=== PATIENT | male | born 1970 | race Caucasian/White ===

== ENCOUNTER 2018-12-21 19:13 | Emergency (ER) | payer OTHER ==
[~2018-12-21] VITALS: Ht 182.9 cm; Wt 113.4 kg
[2018-12-21] MEDS ORDERED: COLCHICINE0.6 MG PO (19:25)
[2018-12-21] MEDS ORDERED: ALLOPURINOL 10100 M1 PO ×2 (19:25→19:46)
[2018-12-21] MEDS ORDERED: PROBENECID-COL1 EACH PO (19:46)
[2018-12-21] MEDS ORDERED: NORCO 7.5-3251 EACH PO (19:50)
[2018-12-21] MEDS ORDERED: PREDNISONE50 MG PO (19:50)
[2018-12-21 20:09] VITALS: BP 125/79
== END 2018-12-21 20:11 | disposition home or self-care (01) ==
LOC: M.ERS 19:13
DX: M10.061 Idiopathic gout, right knee (principal)

== ENCOUNTER 2019-09-04 17:06 | Inpatient (IN) | payer OTHER ==
[~2019-09-04] VITALS: Ht 188 cm; Wt 118.4 kg
[~2019-09-04 17:06] MED LIST: ALLOPURINOL 10100 M1 PO; COLCHICINE0.6 MG PO; NORCO 7.5-3251 EACH PO; PREDNISONE50 MG PO; PROBENECID-COL1 EACH PO
[2019-09-04 17:27] VITALS: BP 143/77
[2019-09-04 18:13] LABS: INFLUENZA A ANTIGEN Negative (Negative); INFLUENZA B ANTIGEN Negative (Negative)
[2019-09-04 18:20] LABS: ABSOLUTE BASOPHILS 0.1 thou/uL (0.0-0.2); ABSOLUTE LYMPHOCYTES 2.7 thou/uL (0.8-5.3); ABSOLUTE MONOCYTES 0.9 thou/uL (0.0-1.2); ABSOLUTE NEUTROPHILS 9.1 thou/uL (1.6-8.1); BASOPHILS 0.9 %; EOSINOPHILS 0.3 %; HEMATOCRIT 37.5 % (42.0-52.0); HEMOGLOBIN 13.2 gm/dL (14.0-18.0); LYMPHOCYTES 21.3 %; MCH 32.6 pg (26.0-34.0); MCHC 35.1 g/dL (28.0-37.0); MCV 92.9 fL (80.0-100.0); MONOCYTES 6.7 %; MPV 7.7 fl. (7.2-11.1); NUCLEATED RBCS 0 /100WBC; PLATELET COUNT* 304 thou/uL (150-400); POLYS 70.8 %; RBC 4.04 mil/uL (4.50-6.00); RDW-CV 13.9 % (10.5-14.5); WBC 12.8 thou/uL (4.0-11.0)
[2019-09-04 18:29] LABS: INR 1.2
[2019-09-04 18:30] LABS: CALCIUM 9.3 mg/dL (8.5-10.1); CREATININE 0.6 mg/dL (0.6-1.3)
[2019-09-04 18:31] LABS: POTASSIUM 2.7 mmol/L (3.5-5.1)
[2019-09-04 18:43] LABS: ALBUMIN 3.1 g/dL (3.4-5.0); TOTAL BILIRUBIN 1.2 mg/dL (<0.1-1.0); TOTAL PROTEIN 7.7 g/dL (6.4-8.2)
[2019-09-04 19:34] LABS: ESR (SEDRATE) 56 mm/hr (0-20)
[2019-09-04 20:21] LABS: URINE BLOOD NEGATIVE (Negative); URINE CLARITY CLEAR; URINE COLOR YELLOW; URINE GLUCOSE-RANDOM NEGATIVE (Negative); URINE KETONES 1+ (Negative); URINE LEUKOCYTES-REFLEX NEGATIVE (Negative); URINE NITRITE-REFLEX NEGATIVE (Negative); URINE PROTEIN TRACE (Negative); URINE SPECIFIC GRAVITY 1.025 (1.005-1.030); URINE UROBILINOGEN 0.2 E.U./dl (0.2-1.0)
[2019-09-04 20:25] LABS: ICTOTEST (BILI CONFIRMATORY) Negative (Negative); URINE BILIRUBIN 1+ (Negative)
[2019-09-04 20:29] LABS: AMP/METHAMP Negative (Negative); BARBITURATES Negative (Negative); BENZODIAZEPINES Negative (Negative); COCAINE Negative (Negative); METHADONE Negative (Negative); OPIATES Negative (Negative); PCP Negative (Negative); THC Negative (Negative)
[2019-09-04 22:24] VITALS: BP 134/90
[2019-09-04 22:30] VITALS: BP 136/77
[2019-09-05 07:30] VITALS: BP 129/73
[2019-09-05] MEDS ORDERED: PREDNISONE 20 M20 M1 PO (12:12)
[2019-09-05] MEDS ORDERED: MITIGARE0.6 MG PO (12:16)
[2019-09-05] MEDS ORDERED: ALLOPURINOL 10100 M3 PO (12:18)
[2019-09-05] MEDS ORDERED: IBU-200200 MG PO (12:21)
[2019-09-05 12:22] VITALS: BP 129/73
--- NOTE | 2019-09-05 13:19 | EKG ---
[place] [address] ELECTROCARDIOGRAM REPORT Name: REBECCA POLO Room: [address] IN [facility]#: [id number] Admission: 09/04/19 Attend Phys: Susan Bland Discharge: Date of : 66 Report #: [id number] THIS REPORT FOR: //name// [facility] ED Test Date: 2019-09-04 Test Time: 18:07:52 Pat Name: REBECCA POLO Department: Room: [facility] Gender: M Channel Marketing Program Manager: : 1970 Requested By: Hayes Perez Order Number: [id number] MD: Jerman Godinez Measurements Intervals [place] Rate: 97 P: 4 SC: 148 QRS: -15 QRSD: 99 T: 24 QT: 346 QTc: 440 Interpretive Statements Sinus rhythm Multiple premature complexes, vent & supraven consider Inferior infarct, old No previous ECG available for comparison Electronically Signed On 09-05-2019 13:19:04 [employer] by Jerman Godinez [email or web address] <ELECTRONICALLY SIGNED> By: Jerman Godinez MD, [facility] 09/05/19 1319 06 06 Jerman Godinez MD, FACC /EPI
[2019-09-07 10:11] LABS: ANA INTERPRETATION Negative (Negative)
== END 2019-09-05 16:35 | disposition home or self-care (01) | DRG 546 ==
LOC: M.ERS 17:06 → M.TBA-ER 18:49 → M.ORTHSURG 18:49
PROVIDERS: Emergency Medicine; ADMIT Internal Medicine
DX: M06.9 Rheumatoid arthritis, unspecified (principal); R65.10 Systemic inflammatory response syndrome (SIRS) of non-infectious origin without acute organ dysfunction; M10.9 Gout, unspecified; M13.0 Polyarthritis, unspecified; E87.6 Hypokalemia; F10.20 Alcohol dependence, uncomplicated; F17.210 Nicotine dependence, cigarettes, uncomplicated; Z83.49 Family history of other endocrine, nutritional and metabolic diseases; Z82.0 Family history of epilepsy and other diseases of the nervous system; Z79.899 Other long term (current) drug therapy

== ENCOUNTER 2021-04-09 11:09 | Emergency (ER) | payer BC ==
[~2021-04-09] VITALS: Ht 188 cm; Wt 136.1 kg
[~2021-04-09 11:09] MED LIST changes: +ALLOPURINOL 10100 M3 PO; +IBU-200200 MG PO; +MITIGARE0.6 MG PO; +PREDNISONE 20 M20 M1 PO
[2021-04-09] MEDS ORDERED: PERCOCET PO (12:49)
[2021-04-09] MEDS ORDERED: PREDNISONE 20 M20 M1 PO (12:49)
[2021-04-09 12:53] VITALS: BP 155/96
== END 2021-04-09 12:58 | disposition home or self-care (01) ==
LOC: M.ERS 11:09
DX: M10.9 Gout, unspecified (principal)

== ENCOUNTER 2021-04-28 12:12 | Inpatient (IN) | payer BC ==
[~2021-04-28] VITALS: Ht 188 cm; Wt 131.5 kg
[~2021-04-28 12:12] MED LIST changes: +PERCOCET PO
[2021-04-28 12:19] VITALS: BP 186/103
[2021-04-28 12:31] LABS: ABSOLUTE BASOPHILS 0.2 thou/uL (0.0-0.2); ABSOLUTE LYMPHOCYTES 2.2 thou/uL (0.8-5.3); ABSOLUTE MONOCYTES 0.7 thou/uL (0.0-1.2); ABSOLUTE NEUTROPHILS 8.7 thou/uL (1.6-8.1); BASOPHILS 1.4 %; EOSINOPHILS 0.2 %; HEMATOCRIT 40.1 % (42.0-52.0); HEMOGLOBIN 13.5 gm/dL (14.0-18.0); LYMPHOCYTES 18.5 %; MCH 31.6 pg (26.0-34.0); MCHC 33.7 g/dL (28.0-37.0); MCV 93.8 fL (80.0-100.0); MONOCYTES 6.1 %; MPV 7.1 fl. (7.2-11.1); NUCLEATED RBCS 0 /100WBC; PLATELET COUNT* 272 thou/uL (150-400); POLYS 73.8 %; RBC 4.28 mil/uL (4.50-6.00); RDW-CV 13.8 % (10.5-14.5); WBC 11.8 thou/uL (4.0-11.0)
[2021-04-28 12:40] LABS: CALCIUM 8.9 mg/dL (8.5-10.1); CREATININE 0.8 mg/dL (0.6-1.3); POTASSIUM 3.7 mmol/L (3.5-5.1)
[2021-04-28 12:51] LABS: ALBUMIN 3.4 g/dL (3.4-5.0); TOTAL BILIRUBIN 1.1 mg/dL (<0.1-1.0); TOTAL PROTEIN 7.9 g/dL (6.4-8.2)
[2021-04-28 16:16] LABS: BF RBC 3894 /mm3; TOTAL CELL COUNT 19025 /mm3
[2021-04-28 16:18] LABS: CLARITY CLOUDY; TOTAL VOLUME 17 ml
[2021-04-28 16:51] LABS: BF MONOCYTES 2 %; BF POLYS 98 %; SOURCE L KNEE
[2021-04-28 19:19] VITALS: BP 145/54
[2021-04-28 23:11] VITALS: BP 157/96
[2021-04-28 23:31] LABS: AMP/METHAMP Negative (Negative); BARBITURATES Negative (Negative); BENZODIAZEPINES Negative (Negative); COCAINE Negative (Negative); METHADONE Negative (Negative); OPIATES Negative (Negative); PCP Negative (Negative); THC Negative (Negative)
[2021-04-29 00:24] VITALS: BP 157/96
[2021-04-29 00:45] VITALS: BP 132/92
[2021-04-29 05:11] LABS: ABSOLUTE BASOPHILS 0.1 thou/uL (0.0-0.2); ABSOLUTE LYMPHOCYTES 0.9 thou/uL (0.8-5.3); ABSOLUTE MONOCYTES 0.4 thou/uL (0.0-1.2); ABSOLUTE NEUTROPHILS 7.6 thou/uL (1.6-8.1); BASOPHILS 0.8 %; HEMATOCRIT 38.9 % (42.0-52.0); HEMOGLOBIN 12.9 gm/dL (14.0-18.0); LYMPHOCYTES 10.3 %; MCH 31.2 pg (26.0-34.0); MCHC 33.2 g/dL (28.0-37.0); MCV 93.8 fL (80.0-100.0); MONOCYTES 4.9 %; MPV 7.8 fl. (7.2-11.1); NUCLEATED RBCS 0 /100WBC; PLATELET COUNT* 270 thou/uL (150-400); RBC 4.15 mil/uL (4.50-6.00); RDW-CV 13.4 % (10.5-14.5); WBC 9.1 thou/uL (4.0-11.0)
[2021-04-29 05:23] LABS: CREATININE 0.9 mg/dL (0.6-1.3); POTASSIUM 4.4 mmol/L (3.5-5.1)
[2021-04-29 08:59] VITALS: BP 132/82
[2021-04-29 13:19] VITALS: BP 129/76
[2021-04-29 18:39] VITALS: BP 130/72
[2021-04-29 20:00] VITALS: BP 142/93
[2021-04-30 00:09] VITALS: BP 134/77
[2021-04-30 04:33] LABS: HEMATOCRIT 38.4 % (42.0-52.0)
[2021-04-30 04:35] LABS: ABSOLUTE BASOPHILS 0.1 thou/uL (0.0-0.2); ABSOLUTE LYMPHOCYTES 2.9 thou/uL (0.8-5.3); ABSOLUTE MONOCYTES 0.4 thou/uL (0.0-1.2); ABSOLUTE NEUTROPHILS 6.6 thou/uL (1.6-8.1); BASOPHILS 0.9 %; EOSINOPHILS 0.3 %; HEMOGLOBIN 12.6 gm/dL (14.0-18.0); LYMPHOCYTES 29.1 %; MCH 31.1 pg (26.0-34.0); MCHC 32.9 g/dL (28.0-37.0); MCV 94.3 fL (80.0-100.0); MONOCYTES 4.4 %; MPV 7.6 fl. (7.2-11.1); NUCLEATED RBCS 0 /100WBC; PLATELET COUNT* 305 thou/uL (150-400); POLYS 65.3 %; RBC 4.07 mil/uL (4.50-6.00); RDW-CV 13.6 % (10.5-14.5); WBC 10.1 thou/uL (4.0-11.0)
[2021-04-30 05:16] LABS: ALBUMIN 2.9 g/dL (3.4-5.0); CALCIUM 8.9 mg/dL (8.5-10.1); CREATININE 0.8 mg/dL (0.6-1.3); POTASSIUM 3.2 mmol/L (3.5-5.1); TOTAL BILIRUBIN 0.3 mg/dL (<0.1-1.0); TOTAL PROTEIN 7.4 g/dL (6.4-8.2)
[2021-04-30 07:08] LABS: GLYCOHEMOGLOBIN (HGB A1C) 7.8 % (4.8-5.6)
[2021-04-30 08:00] VITALS: BP 140/85
[2021-04-30 15:54] VITALS: BP 138/77
[2021-04-30 20:16] VITALS: BP 149/92
[2021-05-01] VITALS: BP 145/95
[2021-05-01 04:52] LABS: ABSOLUTE LYMPHOCYTES 2.4 thou/uL (0.8-5.3); ABSOLUTE MONOCYTES 0.5 thou/uL (0.0-1.2); ABSOLUTE NEUTROPHILS 5.2 thou/uL (1.6-8.1); BASOPHILS 0.4 %; EOSINOPHILS 0.2 %; HEMATOCRIT 37.8 % (42.0-52.0); HEMOGLOBIN 12.4 gm/dL (14.0-18.0); MCH 30.9 pg (26.0-34.0); MCHC 32.8 g/dL (28.0-37.0); MCV 94.1 fL (80.0-100.0); MPV 7.4 fl. (7.2-11.1); NUCLEATED RBCS 0 /100WBC; PLATELET COUNT* 329 thou/uL (150-400); POLYS 63.4 %; RBC 4.02 mil/uL (4.50-6.00); RDW-CV 13.8 % (10.5-14.5); WBC 8.2 thou/uL (4.0-11.0)
[2021-05-01 05:27] LABS: CREATININE 0.8 mg/dL (0.6-1.3); POTASSIUM 3.2 mmol/L (3.5-5.1); TOTAL BILIRUBIN 0.3 mg/dL (<0.1-1.0); TOTAL PROTEIN 7.4 g/dL (6.4-8.2)
[2021-05-01 08:00] VITALS: BP 159/78
[2021-05-01] MEDS ORDERED: AMARYL2 MG PO (08:05)
[2021-05-01] MEDS ORDERED: METFORMIN HCL500 MG PO (08:05)
[2021-05-01] MEDS ORDERED: INDOMETHACIN 2525 MG PO (08:05)
[2021-05-01] MEDS ORDERED: PREDNISONE 20 M20 M1 PO (08:06)
[2021-05-01] MEDS ORDERED: PROTONIX40 M2 PO (08:06)
[2021-05-01] MEDS ORDERED: PERCOCET PO (08:07)
[2021-05-01] MEDS ORDERED: ALLOPURINOL 10100 M3 PO (08:07)
[2021-05-01] MEDS ORDERED: COZAAR 25 MG TA25 M1 PO (11:13)
== END 2021-05-01 15:00 | disposition home or self-care (01) | DRG 554 ==
LOC: M.ERS 12:12 → M.TBA-ER 13:44 → M.2W 13:44
PROVIDERS: Family Medicine; Orthopaedic Surgery; ADMIT Internal Medicine; ATTEND Internal Medicine
PROC: 0S9D3ZZ Drainage of Left Knee Joint, Percutaneous Approach (ICD-10-PCS; principal; 2021-04-30)
DX: M10.062 Idiopathic gout, left knee (principal); M25.462 Effusion, left knee; I16.0 Hypertensive urgency; E11.65 Type 2 diabetes mellitus with hyperglycemia; Z20.822 Contact with and (suspected) exposure to COVID-19; Z79.899 Other long term (current) drug therapy